=== PATIENT | female | born 1995 | race Caucasian/White ===

== ENCOUNTER 2019-10-03 14:54 | Emergency (ER) | payer BC ==
[2019-10-03 15:21] VITALS: BP 128/64; PULSE 76; TEMP 98.4; BMI 25.0
[2019-10-03] MEDS ORDERED: SODIUM CHLORIDE 1,000 ML IV STA (15:51)
[2019-10-03] MEDS ORDERED: ONDANSETRON 4 MG/2 ML VIAL IVPB ONE (15:51)
--- NOTE | 2019-10-03 15:58 | PDOC ---
Documentation entered by Benjamin Guidry SCRIBE, acting as scribe for Jaime Keller MD. Jaime Keller MD: This documentation has been prepared by the Chao price Elijah, SCRIBE, under my direction and personally reviewed by me in its entirety. I confirm that the documentation accurately reflects all work, treatment, procedures, and medical decision making performed by me. History of Present Illness - General Chief Complaint: Pain Stated Complaint: ABDOMINAL PAIN HAD NAUSEA Time Seen by Provider: 10/03/19 14:59 History Source: Patient Exam Limitations: No Limitations - History of Present Illness Initial Comments: 10/03/19 15:46 Patient is a 24 year old female with a significant past medical history of daily marijuana use who presents today with vomiting and Abdominal pain. Patient reports that last night she began drinking at 10 pm and continued until 1 am. Patient then reports that this morning when she woke up she had soiled herself and her symptoms of vomiting and abdominal pain began to onset. Patient was continuously vomiting for x3 hours and then was seen in urgent care. After being seen in urgent care, she was sent to the ER for further evaluations. Patient does note that she is still in pain and her stomach pains in the past have occurred prior to her marijuana use. Allergies: NKA 10/03/19 15:56 Patient states she drank at least 2 drinks of 4 different types of alcohol. Past History - Past Medical History Allergies/Adverse Reactions: Allergies Allergy/AdvReac Type Severity Reaction Status Date / Time No Known Allergies Allergy Unverified 10/03/19 14:57 Home Medications: Ambulatory Orders Ondansetron [Zofran *Odt*] 4 mg SL TID PRN #10 od.tablet MDD 3 10/03/19 Review of Systems - Review of Systems Comments:: 10/03/19 15:51 CONSTITUTIONAL: Absent: Fever, Chills, Diaphoresis, Generalized Weakness, Malaise, Loss of Appetite HEENT: Absent: Rhinorrhea, Nasal Congestion, Throat Pain, Throat Swelling, Difficulty Swallowing, Mouth Swelling, Ear Pain, Eye Pain, Visual Changes CARDIOVASCULAR: Absent: Chest Pain, Syncope, Palpitations, Irregular Heart Rate, Lightheadedness , Peripheral Edema RESPIRATORY: Absent: Cough, Shortness of Breath, SOB with Exertion, Orthopnea, Wheezing, Stridor, Hemoptysis GASTROINTESTINAL: +Abdominal Pain +Nausea +Vomiting Absent: Abdominal Distension, Diarrhea, Constipation, Melena, Hematochezia GENITOURINARY: Absent: Dysuria, Frequency, Urgency, Hesitancy, Flank Pain, Genital Pain MUSCULOSKELETAL: Absent: Myalgia, Arthralgia, Joint Swelling, Back pain, Neck Pain SKIN: Absent: Rash, Itching, Pallor HEMEATOLOGIC/IMMUNOLOGIC: Absent: Easy Bleeding, Easy Bruising, Lymphadenopathy, Frequent infections ENDOCRINE: Absent: Unexplained Weight Gain, Unexplained Weight Loss, Heat Intolerance, Cold Intolerance NEUROLOGIC: Absent: Headache, Focal Weakness, Paresthesias, Vertigo, Lightheadedness, Unsteady Gait, Seizure, Mental Status Changes, Incontinence PSYCHIATRIC: Absent: Anxiety, Depression *Physical Exam - Vital Signs Last Vital Signs Temp Pulse Resp BP Pulse Ox 98.4 F 76 16 128/64 98 10/03/19 14:56 10/03/19 14:56 10/03/19 14:56 10/03/19 14:56 10/03/19 14:56 - Physical Exam 10/03/19 15:57 GENERAL: The patient is awake, alert, and fully oriented, in no acute distress. HEAD: Normal with no signs of trauma. EYES: Pupils equal, round and reactive to light, extraocular movements intact, sclera anicteric, conjunctiva clear. ENT: Ears normal, nares patent, oropharynx clear without exudates. Moist mucous membranes. NECK: Normal range of motion, supple without lymphadenopathy, JVD, or masses. LUNGS: Breath sounds equal, clear to auscultation bilaterally. No wheezes, and no crackles. HEART: Regular rate and rhythm, normal S1 and S2 without murmur, rub or gallop. ABDOMEN: Abdomen is soft. Bowel sounds are present. There is tenderness across the epigastrium left, center, and right. There is no Velasquez sign. There is also periumbilical tenderness and right mid and lower abdominal tenderness. There is no guarding or rebound tenderness. BACK: No CVA tenderness. EXTREMITIES: Normal range of motion, no edema. No clubbing or cyanosis. No cords, erythema, or tenderness. NEUROLOGICAL: Cranial nerves II through XII grossly intact. Normal speech, normal gait. PSYCH: Normal mood, normal affect. SKIN: Warm, Dry, normal turgor, no rashes or lesions noted. 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 She went to sleep and then awoke with stomach upset with nausea, vomiting, and epigastric and diffuse abdominal pain. She went to urgent care where she was found to have significant diffuse abdominal tenderness as well as a white blood cell count greater than 18,000. She was sent to the ER for further evaluation. Here in the emergency room she was found to have epigastric tenderness with mild diffuse tenderness as well. There was no guarding or rebound. She was given IV fluids, Zofran, and on repeat evaluation her symptoms have resolved. Repeat abdominal exam shows no tenderness, patient is feeling well, and her exam is benign. White blood cell count at urgent care was greater than 18,000 and is coming down nicely. There is a left shift, but this is consistent with acute alcoholic gastritis and inflammation with vomiting and demargination. Other electrolytes are normal with the exception of borderline normal sodium and borderline low calcium. Transaminases are normal. Lipase is normal ruling out pancreatitis. Impression: Alcoholic gastritis, resolving Plan: Clear liquids diet, avoid alcohol, progress diet as tolerated. Follow-up with primary care physician. Return to the emergency department for severe or progressive symptoms. Laboratory Results - last 24 hr 10/03/19 10/03/19 10/03/19 16:00 16:00 16:20 WBC RBC Hgb Hct MCV MCH MCHC RDW Plt Count MPV Absolute Neuts (auto) Neutrophils % Neutrophils % (Manual) Band Neutrophils % Lymphocytes % Lymphocytes % (Manual) Monocytes % (Manual) Platelet Estimate Sodium 135 L Potassium 4.0 Chloride 104 Carbon Dioxide 23 Anion Gap 8 BUN 13.0 Creatinine 0.7 Est GFR (CKD-EPI)AfAm 142.54 Est GFR (CKD-EPI)NonAf 122.98 Random Glucose 111 H Calcium 8.3 L Total Bilirubin 0.9 AST 23 ALT 20 Alkaline Phosphatase 35 L Total Protein 6.1 L Albumin 3.8 Lipase Urine Color Yellow Urine Appearance Clear Urine pH >= 9.0 H Urine Protein Negative Urine Glucose (UA) Negative Urine Ketones 1+ H Urine Blood Negative Urine Nitrite Negative Urine Bilirubin Negative Urine Urobilinogen 1.0 Ur Leukocyte Esterase Negative Urine HCG, Qual Negative 10/03/19 10/03/19 16:20 16:20 WBC 13.3 H RBC 4.12 Hgb 13.1 Hct 38.9 MCV 94.3 MCH 31.9 MCHC 33.8 RDW 13.6 Plt Count 173 MPV 9.0 Absolute Neuts (auto) 12.3 Neutrophils % No Result Required. Neutrophils % (Manual) 90.0 H Band Neutrophils % 2.0 Lymphocytes % No Result Required. Lymphocytes % (Manual) 3.0 L Monocytes % (Manual) 5 Platelet Estimate Adequate Sodium Potassium Chloride Carbon Dioxide Anion Gap BUN Creatinine Est GFR (CKD-EPI)AfAm Est GFR (CKD-EPI)NonAf Random Glucose Calcium Total Bilirubin AST ALT Alkaline Phosphatase Total Protein Albumin Lipase 105 Urine Color Urine Appearance Urine pH Urine Protein Urine Glucose (UA) Urine Ketones Urine Blood Urine Nitrite Urine Bilirubin Urine Urobilinogen Ur Leukocyte Esterase Urine HCG, Qual Discharge - Discharge Information Problems reviewed: Yes Clinical Impression/Diagnosis: Alcoholic gastritis Qualifiers: Chronicity: acute Gastritis bleeding: without bleeding Qualified Code(s): K29.20 - Alcoholic gastritis without bleeding Condition: Improved Disposition: HOME - Admission No - Additional Discharge Information Prescriptions: Ondansetron [Zofran *Odt*] 4 mg SL TID PRN #10 od.tablet MDD 3 PRN Reason: nausea or vomiting - Follow up/Referral - Patient Discharge Instructions Patient Printed Discharge Instructions: DI for Alcoholic Gastritis Additional Instructions: Today you were evaluated for abdominal pain and vomiting after drinking alcohol. Your diagnosis is alcoholic gastritis. Avoid alcohol. Drink clear fluids such as soup and tea until your stomach feels better. Take Zofran as needed for nausea or vomiting. A prescription for Zofran has been sent to your pharmacy electronically. Advance your diet once your symptoms have fully resolved. Follow-up with your primary care physician. Return to the emergency department for any severe or progressive symptoms. - Post Discharge Activity
[2019-10-03] MEDS ORDERED: ONDANSETRON 4 MG/2 ML VIAL ONE (16:20)
[2019-10-03 16:30] LABS: HEMATOCRIT 38.9 % (32.4-45.2); HEMOGLOBIN 13.1 GM/dl (10.7-15.3); MCH 31.9 pg (25.7-33.7); MCHC 33.8 g/dl (32.0-36.0); MEAN CELL VOLUME 94.3 fl (80-96); PLATELET COUNT 173 K/MM3 (134-434); RBC 4.12 M/mm3 (3.60-5.2); RDW 13.6 % (11.6-15.6); WHITE BLOOD COUNT 13.3 K/mm3 (4.0-10.8)
[2019-10-03 16:50] LABS: ALBUMIN 3.8 g/dl (3.4-5.0); BILIRUBIN,TOTAL 0.9 mg/dl (0.2-1); CALCIUM 8.3 mg/dl (8.5-10); CREATININE 0.7 mg/dl (0.55-1.3); TOT PROT 6.1 g/dl (6.4-8.2)
[2019-10-03 17:20] LABS: PLATELET ESTIMATE ADEQUATE
== END 2019-10-03 18:33 | disposition home or self-care (01) ==
LOC: FER 14:54
PROC: 3E033GC Introduction of Other Therapeutic Substance into Peripheral Vein, Percutaneous Approach (ICD-10-PCS; principal; 2019-10-03)
PROC: 3E0337Z Introduction of Electrolytic and Water Balance Substance into Peripheral Vein, Percutaneous Approach (ICD-10-PCS; 2019-10-03)
DX: K29.20 Alcoholic gastritis without bleeding (principal)
CPT/HCPCS: 36415; 80053; 81003; 83690; 84703; 85025; 99283-25; J7030